=== PATIENT | female | born 1940 | race Caucasian/White ===

== ENCOUNTER 2021-08-10 09:35 | Emergency (ER) | payer SELFPAY ==
[~2021-08-10] VITALS: Ht 165.1 cm; Wt 83.0 kg
[2021-08-10 09:57] VITALS: BP 160/64
[2021-08-10] MEDS ORDERED: METHOCARBAMOL 500 MG TABLET ONE (11:15)
--- NOTE | 2021-08-10 11:18 | NUR ---
PT ATTEMPTED TO TRANSFER TO TO USE RESTROOM. PT IN 09/04 PAIN. PT BACK INTO BED. ERMD NOTIFIED. ORDER RECEIVED. MEDS ADMIN PER
[2021-08-10] MEDS ORDERED: METHOCARBAMOL 500 MG TABLET PO ONE (11:30)
--- NOTE | 2021-08-10 12:16 | NUR ---
PT AMBULATED TO RESTROOM, SLOWLY WITH STEADY GAIT AND OWN WALKER. PT STATES PAIN IS BETTER AFTER MEDS. ERMD NOTIFIED.
== END 2021-08-10 13:20 | disposition home or self-care (01) ==
LOC: ED 13:14
DX: S32.030A Wedge compression fracture of third lumbar vertebra, initial encounter for closed fracture (principal); S22.050A Wedge compression fracture of T5-T6 vertebra, initial encounter for closed fracture; W18.30XA Fall on same level, unspecified, initial encounter; Y93.89 Activity, other specified; Y92.89 Other specified places as the place of occurrence of the external cause; Y99.8 Other external cause status
CPT/HCPCS: 72128; 72131; 99285